=== PATIENT | female | born 1995 | race Caucasian/White ===

== ENCOUNTER 2016-11-05 22:54 | Emergency (ER) | payer BC ==
[~2016-11-05] VITALS: Ht 162.6 cm; Wt 61.3 kg
[2016-11-06 00:06] VITALS: BP 122/70
== END 2016-11-06 00:30 | disposition left against medical advice (07) ==
LOC: ER 22:55
DX: S61.512A Laceration without foreign body of left wrist, initial encounter (principal); F17.200 Nicotine dependence, unspecified, uncomplicated; F12.10 Cannabis abuse, uncomplicated; X99.1XXA Assault by knife, initial encounter; Y93.89 Activity, other specified; Y92.89 Other specified places as the place of occurrence of the external cause; Y99.8 Other external cause status

== ENCOUNTER 2016-11-06 01:21 | Emergency (ER) | payer BC ==
[~2016-11-06] VITALS: Ht 162.6 cm; Wt 61.3 kg
[2016-11-06] MEDS ORDERED: KETOROLAC 60MG/2ML VIAL IM ONE (02:15)
[2016-11-06] MEDS ORDERED: BACITRACIN ZINC OINT UDPKT TOP ONE (02:15)
[2016-11-06] MEDS ORDERED: LORAZEPAM 0.5MG TABLET PO ONE (02:15)
[2016-11-06] MEDS ORDERED: LIDOCAINE HCL 1% 20ML VIAL (Pyxis) INJ MC ONE (02:15)
[2016-11-06 04:27] VITALS: BP 120/66
== END 2016-11-06 04:29 | disposition home or self-care (01) ==
LOC: ER 01:23
DX: S61.512A Laceration without foreign body of left wrist, initial encounter (principal); F41.9 Anxiety disorder, unspecified; F17.200 Nicotine dependence, unspecified, uncomplicated; F12.10 Cannabis abuse, uncomplicated; X58.XXXA Exposure to other specified factors, initial encounter; Y93.89 Activity, other specified; Y99.8 Other external cause status; Y92.89 Other specified places as the place of occurrence of the external cause
CPT/HCPCS: 12001; 81025; 96372; 99283; J1885; J3490; X7700; Z7610